=== PATIENT | female | born 1950 | race Caucasian/White ===

== ENCOUNTER → 2017-03-23 | Outpatient (CLI) | payer BC ==
[~2017-03-23] MED LIST: CALTRATE-600 W600 MG PO; MUCINEX 60600 MG/TAB PO; MUSSINEX; MVI PO; VITAMIN B12 PO; VITAMIN D; [UNRECOGNIZED DRUG - OTHER]; omega 3
== END ==
LOC: COL.LAB 14:41
DX: Z01.812 Encounter for preprocedural laboratory examination (principal)

== ENCOUNTER → 2021-07-07 | Outpatient (CLI) | payer MEDICARE | LOC: MC.RAD 10:24 | DX: Z12.31 Encounter for screening mammogram for malignant neoplasm of breast (principal) ==